=== PATIENT | female | born 1930 | race African-American/Black ===

== ENCOUNTER 2018-04-05 19:03 | Emergency (ER) | payer MEDICARE, OTHER ==
[~2018-04-05] VITALS: Ht 152.4 cm; Wt 45.4 kg
[2018-04-05 20:06] VITALS: BP 127/66
== END 2018-04-05 21:36 ==
LOC: FSED 19:03 → ER 21:36
DX: Z43.1 Encounter for attention to gastrostomy (principal); G30.9 Alzheimer's disease, unspecified; F02.80 Dementia in other diseases classified elsewhere, unspecified severity, without behavioral disturbance, psychotic disturbance, mood disturbance, and anxiety
CPT/HCPCS: 99283